=== PATIENT | female | born 1950 | race African-American/Black ===

== ENCOUNTER 2021-07-30 18:15 | Emergency (ER) | payer OTHER, MEDICAID ==
[~2021-07-30] VITALS: Ht 160 cm; Wt 73.0 kg
[2021-07-30 18:16] VITALS: BP 124/78
--- NOTE | 2021-07-30 19:05 | NUR ---
TO BED VIA WHEELCHAIR
--- NOTE | 2021-07-30 19:13 | NUR ---
received pt in bed 9 with c/o os blindness x 3 months. Pt was [facility] from [facility].
--- NOTE | 2021-07-30 19:47 | NUR ---
DR PERDOMO AT BEDSIDE FOR EXAM
--- NOTE | 2021-07-30 19:54 | NUR ---
CALL TO [facility] TO REQUEST ADDITIONAL INFORMATION. NO ANSWER
--- NOTE | 2021-07-30 19:58 | NUR ---
ADDITIONAL CALL TO RUY WATTS WHO SAYS PT WAS FEELING SHAKY AND OS BLINDNESS WAS WORSE. THESE AE CHRONIC CONDITIONS
--- NOTE | 2021-07-30 21:00 | NUR ---
PATIENT TO BE DISCHARGED. NO TRANSPORTATION IS AVAILABLE UNTIL AM
--- NOTE | 2021-07-30 22:20 | NUR ---
DISCHARGED, AMBULATORY VIA UBER
[2021-07-30 22:27] VITALS: BP 124/78
== END 2021-07-30 22:20 | disposition home or self-care (01) ==
LOC: MED 18:15
DX: R25.1 Tremor, unspecified (principal); F03.90 Unspecified dementia, unspecified severity, without behavioral disturbance, psychotic disturbance, mood disturbance, and anxiety
CPT/HCPCS: 99283